=== PATIENT | male | born 1990 | race African-American/Black ===

== ENCOUNTER 2021-02-07 01:35 | Emergency (ER) | payer OTHER ==
[~2021-02-07] VITALS: Ht 182.9 cm; Wt 106.6 kg
[2021-02-07 03:52] VITALS: BP 136/80
== END 2021-02-07 03:53 | disposition home or self-care (01) ==
LOC: ER 01:35
DX: M79.651 Pain in right thigh (principal); M25.561 Pain in right knee; W24.0XXA Contact with lifting devices, not elsewhere classified, initial encounter; Y93.89 Activity, other specified; Y92.89 Other specified places as the place of occurrence of the external cause; Y99.8 Other external cause status

== ENCOUNTER 2021-03-19 22:45 | Emergency (ER) | payer OTHER ==
[~2021-03-19] VITALS: Ht 182.9 cm; Wt 113.4 kg
[2021-03-19 22:49] VITALS: BP 154/80
== END 2021-03-20 00:35 | disposition home or self-care (01) ==
LOC: ER 22:45
DX: I10 Essential (primary) hypertension (principal); Z20.822 Contact with and (suspected) exposure to COVID-19